=== PATIENT | male | born 1950 | race Native Hawaiian/Other Pacific Islander ===

== ENCOUNTER 2016-08-29 08:57 | Outpatient (CLI) | payer OTHER | END 2016-08-29 08:58 | disposition short-term general hospital (02) | LOC: AMB 08:57 | DX: R06.09 Other forms of dyspnea (principal); J44.9 Chronic obstructive pulmonary disease, unspecified | CPT/HCPCS: A0425; A0427 ==

== ENCOUNTER 2016-08-29 08:58 | Emergency (ER) | payer OTHER ==
[~2016-08-29] VITALS: Ht 177.8 cm; Wt 81.6 kg
[2016-08-29 09:29] LABS: PLATELET COUNT 344 K/uL (142-355)
[2016-08-29 09:48] LABS: POTASSIUM 2.8 mmol/L (3.6-5.2)
[2016-08-29 12:47] VITALS: BP 100/65; TEMP 98.9
== END 2016-08-29 12:48 | disposition short-term general hospital (02) ==
LOC: ED 08:58
PROVIDERS: Specialist
DX: I25.9 Chronic ischemic heart disease, unspecified (principal); J18.9 Pneumonia, unspecified organism; R09.02 Hypoxemia; E11.9 Type 2 diabetes mellitus without complications; R00.0 Tachycardia, unspecified
CPT/HCPCS: 36415; 36600; 80048; 82550; 82553; 82805; 83735; 83880; 84100; 84484; 85007; 85027; 85379; 85610; 93005; 96361; 96365; 96368; 99285; J0696; J1644; J1815; J1940; J2060; J3490

== ENCOUNTER 2016-08-29 12:52 | Outpatient (CLI) | payer OTHER | END 2016-08-29 14:09 | disposition short-term general hospital (02) | LOC: AMB 12:52 | DX: I25.9 Chronic ischemic heart disease, unspecified (principal); J18.9 Pneumonia, unspecified organism; R09.02 Hypoxemia; E11.9 Type 2 diabetes mellitus without complications; R00.0 Tachycardia, unspecified | CPT/HCPCS: A0425; A0427 ==

== ENCOUNTER 2021-08-15 08:20 | Emergency (ER) | payer BC ==
[~2021-08-15] VITALS: Ht 177.8 cm; Wt 73.9 kg
[2021-08-15 08:25] VITALS: BP 157/72; TEMP 97.9
== END 2021-08-15 09:40 | disposition home or self-care (01) ==
LOC: ED 08:20
DX: M25.511 Pain in right shoulder (principal)
CPT/HCPCS: 96372; 99282; J1885